=== PATIENT | male | born 1965 | race Caucasian/White ===

== ENCOUNTER 2020-02-09 09:03 | Outpatient (REF) | payer OTHER, SELFPAY ==
--- NOTE | 2020-02-09 09:43 | XR_ITS ---
EXAMINATION: XR SHOULDER, RIGHT CLINICAL INFORMATION: Pain COMPARISON: None TECHNIQUE: 3 of the right shoulder. FINDINGS: Bone alignment is normal. No fracture or dislocation is seen. The glenohumeral joint is normal. There are mild degenerative changes at the acromioclavicular joint. Soft tissues are unremarkable. IMPRESSION: Mild arthritis at the acromioclavicular joint.
== END 2020-02-09 09:04 | disposition home or self-care (01) ==
LOC: CF 09:03
PROVIDERS: PCP Internal Medicine; Visit Provider Orthopaedic Surgery
DX: M75.41 Impingement syndrome of right shoulder (principal)
CPT/HCPCS: 20610; 73030; J1040

== ENCOUNTER → 2020-03-15 09:08 | Outpatient (BNVA) | payer OTHER, SELFPAY | PROVIDERS: PCP Internal Medicine; Referring Provider Internal Medicine; Visit Provider Orthopaedic Surgery | DX: Z76.89 Persons encountering health services in other specified circumstances (principal) ==

== ENCOUNTER 2020-04-21 13:02 | Outpatient (REF) | payer OTHER, SELFPAY ==
--- NOTE | 2020-04-21 | FL_ITS ---
EXAMINATION: XR ARTHROGRAM SHOULDER, RIGHT CLINICAL INFORMATION: Right shoulder pain. COMPARISON: Right shoulder 10/09/2016. TECHNIQUE: Following explaining fluoroscopy-guided right shoulder arthrogram procedure, benefits and risks, a written consent was obtained. Patient was placed supine on the fluoroscopy table and a marker was placed along the inferior glenohumeral joint. The area was cleaned and draped with 2% chlorhexidine solution. Sterile drape was placed subsequently. 1% lidocaine was injected at marked skin site. A 22-gauge spinal needle was then advanced from the skin into the joint space under fluoroscopy and 2 mL of nonionic contrast was injected. Following confirmation of contrast in the joint space, 0.1 mL of gadolinium was diluted with 10 mL of 1% lidocaine and saline combined volume was injected into the joint space and needle withdrawn. Complete hemostasis was achieved at the puncture site. Sterile Band-Aid was applied post procedure. Patient tolerated procedure very well. Patient was then sent to MRI for further imaging. FINDINGS: On preliminary imaging of the right shoulder joint there is mild spurring suspected along the glenohumeral joint. Contrast is visualized in the right shoulder joint following intra-articular injection. FLUOROSCOPY TIME: 0.9 minutes. DOSE AREA PRODUCT: 4.318 uGy-m2 (microgray-meter squared). FL/FL arthrogram shoulder RT IMPRESSION: Successful ultrasound-guided right shoulder arthrogram performed for MRI.
--- NOTE | 2020-04-21 13:06 | MR_ITS ---
EXAMINATION: MR SHOULDER WITH CONTRAST, RIGHT CLINICAL INFORMATION: Impingement syndrome right shoulder. COMPARISON: None. TECHNIQUE: MRI of the shoulder was performed following the intra-articular administration of a dilute gadolinium-containing solution (arthrogram) on a high-field scanner. FINDINGS: ROTATOR CUFF: [id number] supraspinatus and infraspinatus tendinosis. Partial-thickness articular-sided tear in the insertional anterior fibers measuring approximately 1 cm AP, 1.5 cm medial-lateral. Posterior to this, there is ill-definition along the articular aspect of the supraspinatus and anterior fibers infraspinatus, with contrast imbibing into the substance of the tendon. Findings raise concern for articular sided fraying. There may be component of intrasubstance tear in the anterior fibers of the infraspinatus. No focal tendon defect or tendon retraction is otherwise seen. Teres minor is intact. Mild subscapularis tendinosis, with partial-thickness articular sided tearing. No muscle atrophy or fatty infiltration. BICEPS: Intact. CORACOACROMIAL ARCH: The undersurface of the acromion is curved with no subacromial spur. Mild AC joint arthritis. Os acromiale present with degenerative changes. LABRUM/CAPSULE: Mild free edge fraying of the superior labrum. No discrete labral tear is otherwise seen. Inferior capsule is intact. GLENOHUMERAL JOINT/MARROW: Mild glenohumeral joint degeneration, with mild inferior humeral head cartilage thinning, small inferomedial humeral head spur. No fracture. MR/MR shoulder RT w con IMPRESSION: 1. [id number] supraspinatus and infraspinatus tendinosis. Partial-thickness articular-sided tear in the insertional anterior fibers of the supraspinatus measuring approximately 1 x 1.5 cm. Otherwise, the findings are articular-sided fraying, with contrast imbibing into the substance of the tendon. There may be component of intrasubstance tear in the anterior fibers of infraspinatus. No evidence of full-thickness tear. 2. Mild subscapularis tendinosis with partial-thickness tearing. 3. Mild free edge fraying of the superior labrum. 4. Os acromiale present with degenerative changes. Mild AC joint arthritis. 5. Mild glenohumeral joint arthritis.
== END 2020-04-21 13:03 | disposition home or self-care (01) ==
LOC: HO.XRAY 13:02
PROVIDERS: Visit Provider Orthopaedic Surgery
DX: M75.41 Impingement syndrome of right shoulder (principal)
CPT/HCPCS: 23350; 73040; 73222; A9585; Q9967

== ENCOUNTER → 2020-05-10 08:26 | Outpatient (BNVA) | payer OTHER, SELFPAY | PROVIDERS: PCP Internal Medicine; Visit Provider Orthopaedic Surgery | DX: M75.41 Impingement syndrome of right shoulder (principal) | CPT/HCPCS: 20610; J1040 ==

== ENCOUNTER → 2020-07-12 08:26 | Outpatient (BNVA) | payer OTHER, SELFPAY | PROVIDERS: PCP Internal Medicine; Visit Provider Orthopaedic Surgery | DX: M75.41 Impingement syndrome of right shoulder (principal) | CPT/HCPCS: 20610; J1040 ==